=== PATIENT | female | born 1970 | race Caucasian/White ===

== ENCOUNTER 2019-05-02 21:38 | Observation (INO) | payer OTHER ==
--- NOTE | 2019-05-02 21:39 | ED ---
Lower Extremity - HPI Summary HPI Summary: 48 yo female presents to [facility] [place] [facility] ED via EMS with right hip pain. Pt tells me that she was dancing at a wedding and was jumping up and down when she felt a crack in her right hip and had immediate pain. She sat down and pain increased. She tried to stand and fell to the ground in pain. An ambulance was called and she was brought to the ED for further eval. She admits to drinking alcohol at the wedding, but states she is not currently drunk. She is unable to move her right hip or ambulate due to pain. She has taken ibuprofen with no relief. Has shooting pain going from her right hip down to her foot. Denies numbness or tingling. PMHx with diabetes and hypothyroidism. Denies previous surgeries. - History of Current Complaint Stated Complaint: FALL RT HIP PAIN PER EMS Time Seen by Provider: 05/02/19 21:39 Hx Obtained From: Patient Severity Initially: Severe Severity Currently: Severe Pain Intensity: 10 Pain Scale Used: 0-10 Numeric - Allergies/Home Medications Allergies/Adverse Reactions: Allergies Allergy/AdvReac Type Severity Reaction Status Date / Time No Known Drug Allergies Allergy none Verified 05/02/19 21:48 Home Medications: Home Medications Insulin Lispro [Admelog] 0 - 100 units .SEE ORDER SEE INSTRUCTIONS MDD 100 05/03 [History Confirmed 05/03/19] Levothyroxine Sodium 150 mcg PO DAILY 05/03/19 [History Confirmed 05/03/19] PMH/Surg Hx/FS Hx/Imm Hx Endocrine/Hematology History: Reports: Hx Diabetes Cardiovascular History: Denies: Hx Congestive Heart Failure, Hx Hypertension, Hx Syncope Respiratory History: Denies: Hx Asthma, Hx Chronic Obstructive Pulmonary Disease (COPD) GI History: Denies: Hx Gastroesophageal Reflux Disease Neurological History: Denies: Hx CVA, Hx Headaches, Hx Migraine Psychiatric History: Denies: Hx Anxiety - Surgical History Surgical History: None - Immunization History Immunizations Up to Date: Yes - Family History Known Family History: Positive: Diabetes - Social History Occupation: Employed Full-time Lives: With Family Alcohol Use: Occasionally Substance Use Type: Reports: None Smoking Status (MU): Light Every Day Tobacco Smoker Review of Systems Constitutional: Negative Cardiovascular: Negative Respiratory: Negative Gastrointestinal: Negative Genitourinary: Negative Musculoskeletal: Other - Right hip pain Skin: Negative Neurological: Negative Psychological: Normal All Other Systems Reviewed And Are Negative: No Physical Exam - Summary Physical Exam Summary: GENERAL: Moderate pain distress SKIN: No rashes, sores, or open wounds. NECK: Supple. Nontender. No lymphadenopathy. CHEST: CTAB. No r/r/w. No accessory muscle use. Breathing comfortably and in no distress. CV: RRR. Without m/r/g. Pulses intact. Brisk cap refill. ABDOMEN: Soft. NTTP. No distention or guarding. Bowel sounds present MSK: Severe TTP at right hip. Unable to move hip due to pain. Adducted. Right knee NTTP right ankle NTTP. NEURO: Alert. Sensations intact b/l LEs. PSYCH: Age appropriate behavior. Triage Information Reviewed: Yes Vital Signs On Initial Exam: Vital Signs: Temp Pulse Resp BP Pulse Ox 98.1 F 93 16 125/101 98 05/02/19 21:44 05/02/19 21:44 05/02/19 22:06 05/02/19 21:44 05/02/19 21:44 Vital Signs Reviewed: Yes Diagnostics - Laboratory Lab Results: Laboratory Tests 05/02/19 05/02/19 22:29 22:29 WBC 7.1 RBC 4.32 Hgb 9.8 L Hct 31 L MCV 72 L MCH 23 L MCHC 31 RDW 19 H Plt Count 309 MPV 8.0 Neut % (Auto) 49.6 Lymph % (Auto) 40.6 Mayes % (Auto) 7.1 Eos % (Auto) 2.2 Baso % (Auto) 0.5 Absolute Neuts (auto) 3.5 Absolute Lymphs (auto) 2.9 Absolute Monos (auto) 0.5 Absolute Eos (auto) 0.2 Absolute Basos (auto) 0.0 Absolute Nucleated RBC 0.0 Nucleated RBC % 0.0 Hypochromasia 2+ Microcytosis 2+ Sodium 138 Potassium 3.8 Chloride 108 Carbon Dioxide 21 L Anion Gap 9 BUN 14 Creatinine 0.70 Est GFR ( Amer) 109.0 Est GFR (Non-Af Amer) 90.1 BUN/Creatinine Ratio 20.0 Glucose 99 Calcium 8.9 Total Bilirubin 0.20 AST 18 ALT 10 Alkaline Phosphatase 63 Total Protein 6.1 L Albumin 4.0 Globulin 2.1 Albumin/Globulin Ratio 1.9 Beta HCG, Quant 0.61 Serum Alcohol 34 H Result Diagrams: 05/02/19 22:29 05/02/19 22:29 Lab Statement: Any lab studies that have been ordered have been reviewed, and results considered in the medical decision making process. - Radiology Hip Xr Radiology Interpretation Completed By: ED Physician Summary of Radiographic Findings: No fx CXR Radiology Interpretation Completed By: ED Physician Summary of Radiographic Findings: No acute process Lumbar Radiology Interpretation Completed By: ED Physician Summary of Radiographic Findings: No acute process Knee Radiology Interpretation Completed By: ED Physician Summary of Radiographic Findings: No acute process - CT Pelvis CT Interpretation Completed By: Radiologist Summary of CT Findings: IMPRESSION: No acute CT pathology. - EKG 1 EKG Comparison: Other - NSR 78bpm. No STEMI Re-Evaluation - Re-Evaluation First Eval Re-Evaluation Time: 23:19 Change: Improved Comment: Pain improved at rest s/p morphine. Still unable to move right hip due to pain Second Eval Re-Evaluation Time: 02:05 Change: Unchanged Comment: Discussed all imaging with pt and plan for admission. She is agreeable Lower Extremity Course/Dx - Course Course Of Treatment: In the ED course it was initally suspected that pt had a right hip fracture - she was given morphine for her discomfort with good relief , but was still had no ROM to the joint. XR was negative, therefore a CT was ordered to further eval and was also negative. I discussed this with the pt and she admitted that her pain seems to be traveling along the L4 dermatome, thus XR of her lumbar spine and knee were ordered and wet read is negative. She is still unable to move the right hip or ambulate. I discussed the case with Dr. Rivera of the hospitalist team as I believe pt requires an MRI and Orthopedic consult - Dr. Rivera agrees to admit the pt. - Diagnoses Provider Diagnoses: Right hip pain - Physician Notifications Discussed Care Of Patient With: Venkatesh Rivera Instructed by Provider To: Admit As Observation Discharge ED - Sign-Out/Discharge Documenting (check all that apply): Patient Departure Patient Received Moderate/Deep Sedation with Procedure: No - Discharge Plan Condition: Stable Disposition: ADMITTED TO [facility] - Billing Disposition and Condition Condition: STABLE Disposition: Admitted to [facility] - Attestation Statements Scribe Documentation Reviewed: Yes Status of Scribe Document: Viewed
[2019-05-02] MEDS ORDERED: Morphine 4 MG/ML VIAL (1 ml) 4 MG/ML VIAL IV ONE (21:47)
[2019-05-02] MEDS ORDERED: Ondansetron INJ* 2 MG/ML VIAL IV ONE (22:00)
[2019-05-02 22:41] LABS: ABS Eosinophils 0.2 10^3/ul (0-0.6); ABS Lymphocytes 2.9 10^3/ul (1.0-4.8); ABS Monocytes 0.5 10^3/ul (0-0.8); ABS Neutrophils 3.5 10^3/ul (1.5-7.7); Eosinophil % 2.2 %; Hematocrit 31 % (35-47); Hemoglobin 9.8 g/dL (12.0-16.0); Lymphocyte % 40.6 %; Mean Corpuscular HGB Conc 31 g/dL (31-36); Mean Corpuscular Hemoglobin 23 pg (27-31); Mean Corpuscular Volume 72 fL (80-97); Platelet Count 309 10^3/uL (150-450); Red Blood Count 4.32 10^6 /uL (3.70-4.87); Red Cell Distribution Width 19 % (10-15); White Blood Count 7.1 10^3/uL (3.5-10.8)
[2019-05-02 22:54] LABS: Albumin/Globulin Ratio 1.9 (1-3); Calcium 8.9 mg/dL (8.6-10.3); EGFR Non-African American 90.1 (>60); Globulin 2.1 g/dL (2-4); Potassium 3.8 mmol/L (3.5-5.0); Total Bilirubin 0.2 mg/dL (0.2-1.0); Total Protein 6.1 g/dL (6.4-8.9)
[2019-05-02 23:00] LABS: HCG Pregnancy 0.61 mIU/mL
[2019-05-02 23:01] LABS: Microcytosis 2+
[2019-05-03] MEDS ORDERED: Morphine 4 MG/ML VIAL (1 ml) 4 MG/ML VIAL IV ONE (02:04)
[2019-05-03] MEDS ORDERED: Ondansetron INJ* 2 MG/ML VIAL IV ONE (02:04)
[2019-05-03] MEDS ORDERED: diPHENhydraMINE IV* 50 MG/ML 1 ml VIAL (BENADRYL) IV ONE (02:04)
[2019-05-03] MEDS ORDERED: oxyCODONE/Acetamin 5/325 MG* TAB PO PRN (02:44)
[2019-05-03] MEDS ORDERED: Ondansetron ODT TAB* 4 MG SL PRN (02:44)
[2019-05-03 03:11] LABS: Phosphorus 3.5 mg/dL (2.5-5.0)
[2019-05-03 03:39] LABS: Vitamin D Total 25(OH) 34.5 ng/mL (20-50)
[2019-05-03] MEDS: Levothyroxine TAB* 150 MCG TAB PO SCH (05:29)
--- NOTE | 2019-05-03 08:35 | HP ---
HISTORY AND PHYSICAL: DATE OF ADMISSION: 05/03/19. ADMITTING PROVIDER: Venkatesh Rivera M.D. PRIMARY CARE PROVIDER: She is currently in transition, with plans to switch to one closer to her home. CHIEF COMPLAINT: Severe 10/10 pain in the right hip radiating to the right knee and into the foot after landing from a jump. HISTORY OF PRESENT ILLNESS: Giles Gauthier is a 48-year-old female with past medical history of insulin-dependent diabetes mellitus type 1(on an insulin pump ); hypothyroidism; overweight (but with recent intentional 30 pound weight loss since being on 9 weeks of a high protein/keto diet). She was at a wedding and was vigorously jumping up and down to the music. Around the 6th jump, she landed, she heard a snapping sound, and felt immediate severe pain in her right hip. She thinks she would have fallen if not caught by a friend who helped assist her to sit down at a table several steps away - this was all quite painful. She tried to stand up and take 1 step, and began to have excruciating 10/10 pain and fell onto her knees. She had to be assisted with EMS to the emergency room where she had numerous imaging studies including an x-ray of her hip/pelvis, chest x-ray, CT of the pelvis, right knee x-ray, and lumbar spine x- ray. These are all pending except for the pelvis CT, which showed no acute pathology. She was anemic to hemoglobin of 9.8, otherwise had a serum alcohol of 34, and she was unable to ambulate or even do more than wiggle her toes without eliciting 10/10 pain. She got morphine 4 mg, had some nausea with that , and was referred to hospitalist service for further evaluation given inability to ambulate. She does have a history of fracture in her left foot of an "unusual bone to break" she states per the orthopedic who evaluated her before, after she was twisting around in some high heels. She also has a bone spur in the left heel and has needed a splint for her left 4th finger after the tendon was displaced after injured by a dog. PAST MEDICAL HISTORY: Diabetes mellitus type 1 on an insulin pump, hypothyroidism. MEDICATIONS: Include: 1. Levothyroxine 150 mcg p.o. daily. 2. Humalog pump. She does not know the settings or how much she gets. ALLERGIES: No known drug allergies. FAMILY HISTORY: Mother had RA. Dad has hypothyroidism. SOCIAL HISTORY: She is a never smoker. She does 1 to 2 drinks of alcohol every month or so. Denies any alcohol use. 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 Her mother, Sarah Gauthier, is her medical surrogate. She actually wants to be a DNR/ DNI and has living hoskins every 5 years to this effect. REVIEW OF SYSTEMS: A complete 14-point review of systems is negative, except as per HPI. PHYSICAL EXAMINATION GENERAL APPEARANCE: In no acute distress except with any movement of the hip. VITAL SIGNS: Afebrile. Temperature 98.1, pulse rate is in the 70s to 80s, respiratory rate between 15 to 29, satting 98% on room air, blood pressure 125/ 101. HEENT: Normocephalic, atraumatic. Pupils equal, round, and reactive to light. Extraocular motions intact. No scleral icterus. LUNGS: Clear to auscultation bilaterally without wheezing, rales or rhonchi. CARDIOVASCULAR: Regular rate and rhythm. No murmurs, rubs or gallops. ABDOMEN: Soft, nontender, and nondistended. EXTREMITIES: Warm, well perfused. No peripheral edema. MUSCULOSKELETAL: She is barely able to wiggle toes on the right foot without eliciting pain. She has no effusion or tenderness on palpation right knee. She does have some tenderness to the palpation of the right femoral head and with some extreme guarding and otherwise does not feel like she can move her leg without eliciting extreme pain despite the opioids administration. NEUROLOGIC: Cranial nerves II through XII are intact. Moving all extremities. Sensation is intact. Alert and oriented x3. DIAGNOSTIC STUDIES/LAB DATA: White count is 7.1, hemoglobin 11.8, hematocrit 31, platelets 309. Sodium 138, potassium 3.8, chloride 108, carbon dioxide 21, BUN 14, creatinine 0.70, glucose 99, AST 18, ALT 10. Albumin of 4.0. Serum alcohol of 34. Imaging as above with hip/pelvis x-ray of the right, chest x-ray , CT pelvis noncontrast, knee x-ray, and lumbar spine x-ray, formal read is pending, but no acute pathology is seen so far. ASSESSMENT AND PLAN: Giles Gauthier is a 48-year-old female with past medical history significant for insulin-dependent diabetes mellitus, hypothyroidism, recent intentional weight loss, presenting with acute 10/10 pain in the right hip after landing from a jump from standing height. My concern would be to rule out an insufficiency fracture or other occult fracture that has not been picked up on CT or radiographs so far. Given the severity of her pain and no localization except seemingly at the femoral head, we are going to get MRI without contrast and consult Orthopedics in a few hours later this morning. We will continue her insulin pump and check point-of- care testing q.a.c. and at h.s. Continue her levothyroxine for hypothyroidism. We will give her Percocet 1 tab q.6 hours p.r.n. and Zofran for the nausea sublingual 4 mg q.6 hours p.r.n. I am checking a PTH, vitamin D 25-OH and phosphorous level to see if there is any other concerns for osteopenia or other metabolic conditions, which may leave her at high risk for fracture of a pathological nature considering the low impact nature of the forces involved. She is a DNR/DNI. Medical surrogate is her mother, Sarah Gauthier. We will leave her n.p.o. for now. [id number]/[facility] #: [id number] KALEE
[2019-05-03] MEDS ORDERED: Dextrose 50% Syringe 50 ML* 25 GM/50 ML SYRINGE IV PUSH PRN (11:33)
[2019-05-03] MEDS ORDERED: Dextrose 50% VIAL 50 ml ONE (11:39)
[2019-05-03] MEDS ORDERED: D5W 1/2 NS 1000 ML BAG* 1,000 ML IV SCH (12:00)
--- NOTE | 2019-05-03 13:02 | CONSULT ---
Consult Consult: I dictated my consult note earlier. CT scan with reformats still doesn't show clear femoral neck fracture, although I suspect that is the diagnosis. Discussed with radiology. We will await MRI R hip in 05/04/19 AM. NPO after midnight for possible surgery 05/04/19. Patient should be optimized for surgery by Hospitalist.
--- NOTE | 2019-05-03 13:07 | PN ---
Subjective Date of Service: 05/03/19 Interval History: HD #1 on 05/03 48F PMH IDDM, hypothyroidism, who presented with acute R leg pain after trauma, scans unrevealing, admitted for pain control and concern for occult hip fracture VSS no daytime issues, she is eager to eat Spoke with ortho who plans for MRI 05/04 and if revealing possible surgery in the afternoon. She is pleasant and well with no other issues. Sig pain while moving leg. Objective Active Medications: Dextrose (D50w Syringe 50 Ml*) 25 gm IV PUSH ONCE PRN PRN Reason: FS < 60 Last Admin: 05/03/19 11:49 Dose: 25 gm Dextrose/Sodium Chloride (D5w 1/2 Ns 1000 Ml Bag*) 1,000 mls @ 50 mls/hr IV PER RATE [facility] Last Admin: 05/03/19 11:49 Dose: 50 mls/hr Levothyroxine Sodium (Synthroid Tab*) 150 mcg PO DAILY@0600 [facility] Last Admin: 05/03/19 05:29 Dose: 150 mcg Ondansetron HCl (Zofran Odt Tab*) 4 mg SL Q6H PRN PRN Reason: NAUSEA/VOMITING Oxycodone/Acetaminophen (Percocet 5/325 Tab*) 1 tab PO Q6H PRN PRN Reason: PAIN - SEVERE Vital Signs - 8 hr 05/03/19 05/03/19 05/03/19 08:00 08:25 12:02 Temperature 98.4 F 98.1 F Pulse Rate 68 74 Respiratory 16 16 16 Rate Blood Pressure 109/58 108/54 (mmHg) O2 Sat by Pulse 98 98 Oximetry Oxygen Devices in Use Now: None Appearance: Pleasant in NAD Eyes: No Scleral Icterus Ears/Nose/Mouth/Throat: NL Teeth, Lips, Gums Neck: NL Appearance and Movements; NL JVP Respiratory: Symmetrical Chest Expansion and Respiratory Effort, Clear to Auscultation Cardiovascular: NL Sounds; No Murmurs; No JVD, RRR Abdominal: NL Sounds; No Tenderness; No Distention, No Hepatosplenomegaly Lymphatic: No Cervical Adenopathy Extremities: No Edema Skin: No Rash or Ulcers Neurological: Alert and Oriented x 3 Result Diagrams: 05/02/19 22:29 05/02/19 22:29 Assess/Plan/Problems-Billing Assessment: 48F PMH IDDM, hypothyroidism, who presented with acute R leg pain after trauma, scans unrevealing, admitted for pain control and concern for occult hip fracture - Patient Problems (1) Right hip pain Current Visit: Yes Status: Acute Code(s): M25.551 - PAIN IN RIGHT HIP SNOMED Code(s): 47323074 Comment: - Neg xray, CT, ortho with high suspicion for occult fracture - Await MRI - Pain control, Tylenol, Toradol, Oxy for breakthru (2) Preoperative examination Current Visit: Yes Status: Acute Code(s): Z01.818 - ENCOUNTER FOR OTHER PREPROCEDURAL EXAMINATION SNOMED Code(s): 040318623 Comment: - Pt can easily complete 4 METS - EKG NSR, labs unremarkable - RCRI 1 from IDDM 6% risk of post op major event - No other optimizing tests, she is low risk for a low risk procedure and she elects to proceed if OR is needed (3) Hypothyroid Current Visit: Yes Status: Acute Code(s): E03.9 - HYPOTHYROIDISM, UNSPECIFIED SNOMED Code(s): 14933922 Comment: - Home synthroid (4) Insulin dependent diabetes mellitus Current Visit: Yes Status: Acute Code(s): E11.9 - TYPE 2 DIABETES MELLITUS WITHOUT COMPLICATIONS; Z79.4 - SENIOR LIVING (CURRENT) USE OF INSULIN SNOMED Code( s): 24477889 Comment: - Pump mgmt for pt - Carb consistent diet (5) Microcytic anemia Current Visit: Yes Status: Acute Code(s): D50.9 - IRON DEFICIENCY ANEMIA, UNSPECIFIED SNOMED Code(s): 729847320 Comment: - Iron studies, stable (6) DVT prophylaxis Current Visit: Yes Status: Acute Code(s): Z29.9 - ENCOUNTER FOR PROPHYLACTIC MEASURES, UNSPECIFIED SNOMED Code(s): 269423906 Comment: - SCDS, if going for surgery, post op DVT to be managed by ortho (7) Full code status Current Visit: Yes Status: Acute Code(s): Z78.9 - OTHER SPECIFIED HEALTH STATUS SNOMED Code(s): 411077212 Status and Disposition: MRI 05/04 and ortho to follow
--- NOTE | 2019-05-03 13:44 | CONS ---
CONSULTATION REPORT: DATE OF CONSULT: 05/03/19 REASON FOR CONSULTATION: Right hip pain. HISTORY: The patient is a 48-year-old woman who lives by herself with 3 dogs, who presented [place] [facility] [place] night, 05/02/19, with severe right hip area pain after an injury sustained while dancing at a wedding. The patient states that she has no history of lower back or right hip pain. She does have diabetes mellitus type 1. The patient was at the wedding. She was dancing aggressively on the dance floor. This was around 8 p.m. The patient landed and heard a tear or a crack. She suddenly had extreme pain about the right hip. She fell to the ground and then was helped up. The patient had been drinking and had multiple drinks afterwards to help with the pain. Eventually, she was brought by ambulance to the [facility] [place]. The patient was seen by emergency room staff who ordered x-ray and CT scan right hip and notified the hospitalist team. She was admitted to the hospitalist service for pain management and workup of her pain generator. I was notified this morning of the consultation. X-rays and CT scan had shown no fracture at the time of the consultation. The patient describes significant pain about the right hip, traveling down the lower extremity. She points to the lateral aspect of the right hip area as the location where the pain is the worst. She denies numbness and tingling down the right lower extremity. Recently, the patient had several orthopedic injuries. One was a left ring finger injury treated without orthopedic surgeon consultation, but discussion with other healthcare professionals. Another was a contralateral left foot injury, at which time the patient was told that she had a traction spur of the plantar fascia and a calcification in the distal Achilles tendon. PAST MEDICAL HISTORY: Diabetes mellitus type 1, on an insulin pump; hypothyroidism. PAST SURGICAL HISTORY: None. MEDICATIONS: 1. Synthroid. 2. Humalog insulin pump. ALLERGIES: No known drug allergies. FAMILY HISTORY: The patient's mother had rheumatoid arthritis. No family history known of problems with anesthesia or blood clot. SOCIAL HISTORY: The patient lives alone with 3 dogs. She is not a smoker and has never been a smoker. 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 The patient's mother is a medical surrogate and the patient has spoken with staff already about wanting to be a DNR/DNI and that she has a living will in effect with regards to this. REVIEW OF SYSTEMS: The patient describes some left ring finger complaint regarding an extension lag and some left foot discomfort, but otherwise comprehensive 14- point review of systems was negative. PHYSICAL EXAM: Body temperature 98.4 degrees Fahrenheit, heart rate 68, blood pressure 109/58, respiratory 16, 98% oxygen saturation on room air. In no acute distress while the patient is lying supine. Nontoxic appearing. Alert and oriented, appropriate mood and affect, appropriate dress and hygiene for a hospitalized patient. I examined the patient in her floor room. The patient was lying fully supine, clearly uninterested in any type of movement. I visualized the right lower extremity. No clear soft tissue swelling or bruising. The patient flinched and became quite anxious with my touching any part of her right lower extremity. The patient was very anxious about that. Eventually, I was able to feel along the length of the right lower extremity and the patient had no numbness or decreased sensation. Sensation was fully intact. However, the patient was quite anxious about any movement of the right lower extremity and that it would cause pain. Right foot is warm and well perfused. Tibial artery and dorsalis pedis pulses intact. I convinced the patient to turn herself with a log roll maneuver. The patient had no tenderness to palpation of the lower back, midline, or paraspinal. She also had no tenderness to palpation of the ischial tuberosity nor of any part of the posterior thigh where the hamstring tendons are present. The patient did have significant tenderness to palpation of the greater trochanter. The patient was resisted to any amount of range of motion of the right hip, be it log roll or any other passive range of motion. With regards to active motion, the patient was eventually able to be convinced to actively flex and extend her right knee, dorsiflex and plantarflex the ankle , and flex and extend the toes. DIAGNOSTIC STUDIES/LAB DATA: Imaging: X-rays of the right hip and pelvis obtained 05/02/19 were reviewed. These show no clear fracture. No significant degenerative changes right hip joint. The patient also had x-rays, 4 views of the right knee performed; these show no fracture and no significant degenerative changes. The patient also had lumbar spine x-rays obtained early this morning. These show some loss of normal lumbar lordosis. Only the slightest of shape changes of the vertebral bodies showing only the slightest amount of degenerative disk disease. No significant loss of neural foramen patency appreciated. Pelvis CT was read by radiology as negative for fracture. I did not see any clear fracture of the right hip. Reading radiologist overnight felt that way, no clear fracture. I discussed the CT imaging with Dr. Wiggins, who was on-call , and he thought that perhaps there might be a nondisplaced femoral neck fracture. ASSESSMENT: 1. Right hip pain, acute, severe. 2. Likely right hip fracture, likely right hip femoral neck fracture. PLAN: 1. Given the patient's benign lower back exam and hamstring exam, pathology related to these anatomical areas was less likely. The tenderness of the hip area, greater trochanter combined with the patient's resistance to any movement of the hip joint indicates an exam very consistent with a hip fracture despite the patient's young age. 2. I spoke to Dr. Wiggins about the CT scan. He was going to get some reformatting views to increase the sensitivity of the study. 3. MRI of the right hip had been ordered at 2:41 a.m. this morning, but had not been done because it was not deemed an emergency, although the order was put in for stat priority. We do not have MRI team in-house on Sundays. 4. I asked before I saw the patient this morning that she be made n.p.o. for the possibility of surgery today. 5. I have not come across any specific concerns of hospitalist team regarding medical optimization and clearance, but we will request their explicit statement of medical optimization for surgery, if surgery is required. 6. I am waiting for CT scan result of reformatting images. If that is still ambiguous, we will wait for MRI scan to determine whether or not the patient needs a right hip surgery. 7. I already discussed with the patient the possibility of right hip fracture and the method of treatment if the patient has a nondisplaced femoral neck fracture, which would be 3 or 4 cannulated screws. If the patient needs surgery , this will be done either today or tomorrow, 05/04/19. 8. The patient should be kept nonweightbearing right lower extremity, and once we have the surgical timing, as needed, outlined, we can come up with a strategy for DVT prophylaxis pre and postoperatively. Addendum: Reformatted CT scan images failed to show definitive hip fracture, although I see a break in the lateral cortex in one coronal slice view and suspect a high femoral neck non-displaced fracture. Radiology department is not keen on the MRI team coming in on a Saturday and the OR is not keen on operating. So I discussed with the Hospitalist team. We let the patient eat, she will have MRI Saturday morning and she will be NPO after midnight tonight for possible surgery. Depending on availability I would operate after clinic Saturday or a partner might operate sooner than that. [id number]/[facility] #: [id number] KALEE
[2019-05-03] MEDS ORDERED: oxyCODONE TAB* 5 MG TAB PO PRN (15:50)
[2019-05-03] MEDS: Ketorolac INJ* 30 MG/ML 1 ML VIAL IV PUSH PRN (16:25)
[2019-05-03] MEDS: Acetaminophen TAB* 325 MG PO SCH ×2 (16:26→21:57)
[2019-05-03] MEDS: Morphine INJ* 2 MG/ML 1 ML SYRINGE (TWO MG - NEW SYRINGE VERSION) IV PRN (21:58)
[2019-05-04] MEDS: Acetaminophen TAB* 325 MG PO SCH ×5 (03:57→18:39)
[2019-05-04] MEDS: Levothyroxine TAB* 150 MCG TAB PO SCH (05:25)
[2019-05-04] MEDS: Morphine INJ* 2 MG/ML 1 ML SYRINGE (TWO MG - NEW SYRINGE VERSION) IV PRN ×3 (05:26→12:37)
[2019-05-04 06:04] LABS: Hematocrit 32 % (35-47); Hemoglobin 9.9 g/dL (12.0-16.0); Mean Corpuscular HGB Conc 31 g/dL (31-36); Mean Corpuscular Hemoglobin 23 pg (27-31); Mean Corpuscular Volume 73 fL (80-97); Mean Platelet Volume 7.9 fL (7.4-10.4); Platelet Count 261 10^3/uL (150-450); Red Blood Count 4.36 10^6 /uL (3.70-4.87); Red Cell Distribution Width 19 % (10-15); White Blood Count 5.9 10^3/uL (3.5-10.8)
[2019-05-04 06:35] LABS: % Iron Saturation 13 % (15-55); Iron 49 ug/dL (50-212); Total Iron Binding Capacity 381 mcg/dL (250-450); Transferrin 272 mg/dL (203-362)
[2019-05-04] MEDS ORDERED: NS 0.9% 1000 ML** 1,000 ML IV SCH (07:15)
[2019-05-04 08:33] LABS: Ferritin 3.4 ng/mL (11-307)
[2019-05-04] MEDS ORDERED: Ondansetron INJ* 2 MG/ML VIAL IV PRN (09:59)
[2019-05-04] MEDS ORDERED: Ondansetron INJ* 2 MG/ML VIAL ONE (10:03)
[2019-05-04] MEDS: Ketorolac INJ* 30 MG/ML 1 ML VIAL IV PUSH PRN ×2 (11:18→18:39)
--- NOTE | 2019-05-04 13:35 | PN ---
Subjective Interval History: No acute overnight events. Patient still reporting significant R hip pain, stating she had significant pain just trying to sit up to eat, and that she will not be able to try and walk. For pain control, she asks for morphine IV only. She states that oxycodone made her "head spin" and Percocet had "no effect ". MRI with IT band tear. Discussed findings with Ortho consult, who reviewed images and recommended starting prednisone taper. Stated that patient no longer needs hospitalization, but now we are pending her cooperating with attempting to ambulate. Objective Active Medications: Acetaminophen (Tylenol Tab*) 975 mg PO Q8H [facility] Last Admin: 05/04/19 10:09 Dose: Not Given Dextrose (D50w Syringe 50 Ml*) 25 gm IV PUSH ONCE PRN PRN Reason: FS < 60 Last Admin: 05/03/19 11:49 Dose: 25 gm Ketorolac Tromethamine (Toradol Inj*) 30 mg IV PUSH Q6H PRN PRN Reason: PAIN - MODERATE Last Admin: 05/04/19 11:18 Dose: 30 mg Levothyroxine Sodium (Synthroid Tab*) 150 mcg PO DAILY@0600 [facility] Last Admin: 05/04/19 05:25 Dose: 150 mcg Morphine Sulfate (Morphine Inj (Syringe))*) 2 mg IV Q3H PRN PRN Reason: PAIN - SEVERE, BREAKTHROUGH Last Admin: 05/04/19 12:37 Dose: 2 mg Ondansetron HCl (Zofran Inj*) 4 mg IV Q4H PRN PRN Reason: NAUSEA Last Admin: 05/04/19 10:05 Dose: 4 mg Prednisone (Deltasone Tab*) 50 mg PO DAILY [facility] Vital Signs - 8 hr 05/04/19 05/04/19 05/04/19 07:18 08:00 09:18 Temperature 98.8 F Pulse Rate 61 Respiratory 16 18 18 Rate Blood Pressure 112/56 (mmHg) O2 Sat by Pulse 100 Oximetry 05/04/19 05/04/19 05/04/19 10:11 11:18 12:37 Temperature 99 F Pulse Rate 69 Respiratory 18 16 18 Rate Blood Pressure 120/57 (mmHg) O2 Sat by Pulse 97 Oximetry Oxygen Devices in Use Now: None Appearance: well appearing, only in distress when asked to move leg Ears/Nose/Mouth/Throat: Clear Oropharnyx, Mucous Membranes Moist Respiratory: Clear to Auscultation - anteriorly Cardiovascular: NL Sounds; No Murmurs; No JVD, RRR Abdominal: NL Sounds; No Tenderness; No Distention Extremities: No Edema, - - significant ttp over lateral R hip Skin: No Rash or Ulcers Neurological: Alert and Oriented x 3, - - 4/5 strength with R hip flexion Result Diagrams: 05/04/19 05:41 05/02/19 22:29 Additional Lab and Data: Laboratory Tests 05/02/19 05/02/19 22:29 22:29 WBC 7.1 RBC 4.32 Hgb 9.8 L Hct 31 L MCV 72 L MCH 23 L MCHC 31 RDW 19 H Plt Count 309 MPV 8.0 Neut % (Auto) 49.6 Lymph % (Auto) 40.6 [place] % (Auto) 7.1 Eos % (Auto) 2.2 Baso % (Auto) 0.5 Absolute Neuts (auto) 3.5 Absolute Lymphs (auto) 2.9 Absolute Monos (auto) 0.5 Absolute Eos (auto) 0.2 Absolute Basos (auto) 0.0 Absolute Nucleated RBC 0.0 Nucleated RBC % 0.0 Hypochromasia 2+ Microcytosis 2+ Sodium 138 Potassium 3.8 Chloride 108 Carbon Dioxide 21 L Anion Gap 9 BUN 14 Creatinine 0.70 Est GFR ( Amer) 109.0 Est GFR (Non-Af Amer) 90.1 BUN/Creatinine Ratio 20.0 Glucose 99 Calcium 8.9 Total Bilirubin 0.20 AST 18 ALT 10 Alkaline Phosphatase 63 Total Protein 6.1 L Albumin 4.0 Globulin 2.1 Albumin/Globulin Ratio 1.9 Beta HCG, Quant 0.61 Serum Alcohol 34 H Assess/Plan/Problems-Billing Assessment: 48W with IDDM, hypothyroidism, Fe-def anemia, presents with acute R hip pain after trauma, with MRI significant for IT band tear. Pending ambulation before discharge, requiring significant pain control. - Patient Problems (1) Right hip pain Comment: Right IT Band tear. - Pain control with Tylenol RTC, Toradol prn moderate pain, Morphine for severe/ breakthrough - appreciate ortho consult - will start on prednisone taper - PT ordered (2) Insulin dependent diabetes mellitus Comment: - Pump mgmt for pt - Carb consistent diet (3) Hypothyroid Comment: - Home synthroid (4) Microcytic anemia Comment: Iron deficient. - start supplement (5) DNR (do not resuscitate) Current Visit: Yes Status: Acute Status and Disposition: MRI 05/04 and ortho to follow
[2019-05-04 13:55] LABS: TSH (Thyroid Stimulating Horm) 14.89 mcIU/mL (0.34-5.60)
[2019-05-04] MEDS ORDERED: predniSONE TAB* 50 MG PO SCH (14:00)
--- NOTE | 2019-05-04 18:07 | PN ---
Progress Note - Progress Note Date of Service: 05/04/19 SOAP: Subjective: Pain decreased. Lower pain medication requirement. Objective: NAD. Comfortable-appearing. RLE: - sensation intact throughout - intact motor throughout - Relatively pain-free nearly FROM passive knee and ankle. - Pain with hip PROM but tolerates at least 30 degrees flexion. - TTP of ITB and tensor fascia madan. Imaging: MRI demonstrates fluid signal along the tensor fascia madan, the proximal extension of the iliotibial band Selected Entries 05/04/19 15:36 Temperature 99.1 F Pulse Rate 79 Respiratory 18 Rate Blood Pressure 123/67 (mmHg) O2 Sat by Pulse 100 Oximetry Assessment: HD 3 right hip tensor fascia madan sprain Plan: - Patient was allowed to eat as no hip surgery was/is required - Oral Prednisone taper started for strong anti-inflammatory effect - PT for WBAT, gait training, strengthening. Assist device as needed. - Dispo planning- home (more likely) versus rehab - Follow-up with orthopaedics at home ([facility]) in 1 month if still symptomatic - Recommend switch to oral narcotics for impending hospital discharge - Discussed with patient the anatomy of the injury as well as the patient's left ring finger soft tissue mallet injury
[2019-05-04] MEDS ORDERED: predniSONE TAB* 20 MG PO ONE (18:42)
[2019-05-04] MEDS ORDERED: Naproxen TAB* 250 MG PO PRN (18:43)
[2019-05-04] MEDS: HYDROmorphone TAB* 2 MG PO PRN (22:34)
[2019-05-05] MEDS: Acetaminophen TAB* 325 MG PO SCH ×2 (03:19→13:26)
[2019-05-05] MEDS: Levothyroxine TAB* 150 MCG TAB PO SCH (05:36)
[2019-05-05] MEDS: HYDROmorphone TAB* 2 MG PO PRN ×2 (05:36→13:25)
[2019-05-05] MEDS ORDERED: Dextrose 50% VIAL 50 ml IV PUSH PRN (08:16)
[2019-05-05] MEDS ORDERED: Ferrous Sulfate TAB* 325 MG PO SCH (09:00)
[2019-05-05] MEDS ORDERED: predniSONE TAB* 20 MG PO ONE (09:00)
[2019-05-05] MEDS ORDERED: Insulin LISPRO* 1 UNITS UNIT SUBCUT SCH (11:30)
[2019-05-05 11:48] VITALS: BP 135/68
--- NOTE | 2019-05-05 14:03 | DS ---
CC: Dr. Mehul Fitzpatrick * DISCHARGE SUMMARY: DATE OF ADMISSION: 05/03/19 DATE OF DISCHARGE: 05/05/19 PRIMARY CARE PROVIDER: The patient denies having one. FENDER FINISHER: The patient does not remember name. PRIMARY DIAGNOSES: 1. Right iliotibial band tear. 2. Iron-deficiency anemia. SECONDARY DIAGNOSES: 1. Hypothyroidism. 2. Insulin-dependent diabetes type 1. CONSULTS: Orthopedic Surgery, Dr. Mehul Fitzpatrick. DISCHARGE MEDICATIONS: 1. The patient is on her home insulin pump. 2. Dilaudid 2 mg every 6 hours as needed for severe pain, given total of 10 doses. 3. Levothyroxine 150 mcg daily. 4. Naproxen 500 mg twice a day as needed for gakk-cy-qmuimywk pain. 5. Ferrous sulfate 325 mg daily on an empty stomach. HISTORY OF PRESENT ILLNESS: Ms. Gauthier is a 48-year-old woman with type 1 diabetes, hypothyroidism, who was at a wedding on day prior to presentation and was vigorously jumping up and down to the music. Around her sixth jump, she landed, heard a snapping sound, and felt immediate severe pain in her right hip. She thinks she would have fallen if not caught by a friend who helped assist her to sit down at a table. Each time she tried to stand up and take 1 step, she began experiencing excruciating 10/10 pain and fell to her knees. She had multiple alcoholic drinks to help with the pain, but as it was unremitting she was brought by ambulance to [facility] Emergency Department. HOSPITAL COURSE: The patient had x-ray of her hip, pelvis as well as a CT of the pelvis, right knee x-ray, and lumbar spine x-ray, all which did not show etiology for her severe pain. She was noted to be anemic with hemoglobin of 9.6 and she did report that she is anemic on and off given heavy periods. Initially in the hospitalization, the patient declined ambulation given excruciating pain and she reports she even had excruciating pain upon wiggling her toes. Her pain was initially controlled with morphine while pending orthopedic surgery consult. She was seen and evaluated by Orthopedic Surgery, who was concerned for small fracture not picked up on CT scan, so MRI hip was recommended. MRI hip resulted with IT band tear. Given the patient's continued excruciating pain , it was recommended that she take steroids, but after 1 dose, given her elevated blood glucose, she declined further dosing. She was able to be switched from IV morphine and ketorolac to low doses of oral Dilaudid with standing Tylenol, and naproxen as needed for [id number]-ikcranvb pain. She was seen and evaluated by Physical Therapy, and on the day of discharge, it was noted that she was ambulating to and from the bathroom with nursing staff as needed and also able to do so without assistance. They recommended short-term rehab if she is unable to return home; however, the patient was very motivated to be discharged. She did report severe right hip pain on movement and mild at rest, but otherwise denied 10-point review of systems. PHYSICAL EXAMINATION: Afebrile, heart rate 70s, blood pressure 135/68, respiratory rate 17, oxygen saturation 100% on room air. In general, she is a well-appearing woman, in no acute distress, who is ambulating around her room with an assistive device, who is alert and engaged and appears very comfortable. Neck: No JVD. Supple. HEENT: OP clear. Moist mucous membranes. Lungs: Clear to auscultation bilaterally. Heart: Regular rate and rhythm. No murmurs, gallops, or rubs. Abdomen: Soft, nontender, nondistended. Extremities: Warm and well perfused without evidence of edema. Significant tenderness to palpation of the right lateral hip. Neuro: A and O x3. 3/5 strength with right hip flexion limited due to pain. DIAGNOSTIC STUDIES/LAB DATA: Hemoglobin 9.8 with MCV 72. Iron 49, TIBC 381, percent saturation 13, and ferritin 3.4. TSH 14.89. Creatinine 0.7. Hip/pelvis x-ray with no radiographic evidence for right hip fracture. Knee x-ray on the right with no evidence for acute disease. Pelvis CT with no acute CT pathology, unremarkable bones and joints. Lumbar spine x-ray without acute pathology. Hip MRI with focal soft tissue swelling present along the right iliotibial band extending from the region of the iliac crest into the proximal thigh. The proximal and mid portion of the IT band appears discontinuous, consistent with a tear. There is right gluteus medius and minimus tendinosis. The bones are normal in alignment. No bone marrow edema, fracture, evidence for avascular necrosis is present. There is mild bilateral osteoarthritic change in the hips. DISCHARGE PLAN: The patient will be discharged and should follow up with her sheet sewer in [facility]. She was also recommended to establish care with a primary care physician. The patient reports that she saw an expert sports physiotherapist in the past for bone spurs and she plans to make an appointment with him upon return to [facility] this week. She was given 10 doses of 2 mg hydromorphone pills to use only for severe pain. She was given naproxen for rjvv-uh-qhienmkj pain. She is to continue on her insulin pump, and she was prescribed iron daily for significant iron-deficiency anemia and asked to follow this up with a new primary care physician. She was also informed of her elevated TSH, but the patient preferred to follow this up with her established sheet sewer in [facility] and not make medication changes on discharge. She is to eat a healthy diet, low in processed foods. She is to resume activity as tolerated. She can continue to use ice for pain control in her leg and she should eventually establish care with Physical Therapy if her physical limitations persist. DISPOSITION: To home. CONDITION: Good. TIME SPENT: Approximately 60 minutes was spent on discharge of this patient, more than half of which was spent with care coordination at bedside for interview and exam. [id number]/[facility] #: [id number] KALEE
== END 2019-05-05 14:20 | disposition home or self-care (01) ==
LOC: ED 21:38 → SSU 05-03 02:46
PROVIDERS: ADMIT Internal Medicine; ATTEND Internal Medicine
DX: M76.31 Iliotibial band syndrome, right leg (principal); D50.9 Iron deficiency anemia, unspecified; M25.551 Pain in right hip; E03.9 Hypothyroidism, unspecified; E10.9 Type 1 diabetes mellitus without complications; Z96.41 Presence of insulin pump (external) (internal); Z79.4 Long term (current) use of insulin; Z79.899 Other long term (current) drug therapy; F17.210 Nicotine dependence, cigarettes, uncomplicated
CPT/HCPCS: 36415; 71045; 72110; 72192; 80053; 80320; 82306; 82728; 82947; 83540; 83550; 83970; 84100; 84443; 84702; 85025; 85027; 93005; 96374; 96375; 96376; 99285; A9270-GY; G0378; G0480; G8978-GP-CJ; G8979-GP-CI; J1200; J1885; J2270; J2405; J7512